=== PATIENT | female | born 1965 | race Caucasian/White ===

== ENCOUNTER 2019-10-06 17:52 | Emergency (ER) | payer SELFPAY ==
[2019-10-06] MEDS ORDERED: DIPHENHYDRAMINE 25 MG TAB/CAP ONE (19:10)
[2019-10-06] MEDS ORDERED: SMZ./TMP. 800/160 MG TABLET ONE (19:11)
[2019-10-06] MEDS ORDERED: predniSONE 20 MG TAB ONE (19:11)
--- NOTE | 2019-10-06 19:17 | ER ---
Nurse's Notes [facility] Name: Evie Nesbitt Age: 54 yrs Sex: Female : 1965 Arrival Date: 10/06/2019 Time: 17:56 Bed 25 Private MD: Diagnosis: Dermatitis, unspecified;Rash and other nonspecific skin eruption;Tobacco abuse counseling;Tobacco use Presentation: 10/06 18:22 Presenting complaint: Patient states: "I have these bumps all over me and I don't know aj what they are" Reports that she has had this rash for the past weeks. States that the rash is over her entire body and it itches. Transition of care: patient was not received from another setting of care. Onset of symptoms was September 2019. Risk Assessment: Do you want to hurt yourself or someone else? Patient reports no desire to harm self or others. Initial Sepsis Screen: Does the patient meet any 2 criteria? No. Patient's initial sepsis screen is negative. Does the patient have a suspected source of infection? No. Patient's initial sepsis screen is negative. Care prior to arrival: None. 18:22 Method Of Arrival: Ambulatory [facility] 18:22 Acuity: LLOYD 5 aj1 Triage Assessment: 18:23 General: Appears in no apparent distress. comfortable, Behavior is calm, cooperative, aj1 appropriate for age. Pain: Denies pain. Neuro: Level of Consciousness is awake, alert, obeys commands. Cardiovascular: Patient's skin is warm and dry. Respiratory: Airway is patent Respiratory effort is even, unlabored, Respiratory pattern is regular, symmetrical. Historical: - Allergies: 18:23 No Known Allergies; aj1 - PMHx: 18:23 None; aj1 - Immunization history:: Flu vaccine is not up to date. - Coronavirus screen:: The patient has NOT traveled to [place] in the past 14 days. - Social history:: Smoking status: Patient reports the use of cigarette tobacco products, smokes one pack cigarettes per day. - Ebola Screening: : Patient denies travel to an Ebola-affected area in the 21 days before illness onset. Screenin:30 Abuse screen: Denies threats or abuse. Denies injuries from another. Nutritional ls4 screening: No deficits noted. Tuberculosis screening: No symptoms or risk factors identified. Fall Risk None identified. Assessment: 18:25 General: Appears in no apparent distress. comfortable. ls4 18:25 Neuro: No deficits noted. Cardiovascular: No deficits noted. Respiratory: No deficits ls4 noted. Derm: Rash noted that is macular, itchy, urticaria, ON TRUNK ARMS BACK AND LEGS. Vital Signs: 18:23 BP 123 / 81; Pulse 94; Resp 18; Temp 97.8; Pulse Ox 100% on R/A; Weight 45.36 kg (R); aj1 Height 5 ft. 6 in. (167.64 cm) (R); Pain 0/10; 19:30 BP 122 / 80; Pulse 88; Resp 14; Temp 98.0(O); Pulse Ox 99% on R/A; Pain 0/10; ls4 18:23 Body Mass Index 16.14 (45.36 kg, 167.64 cm) 1 ED Course: 17:56 Patient arrived in ED. mr 18:23 Triage completed. aj1 18:23 Arm band placed on. 1 18:25 Kt Wolff MD is Attending Physician. [facility] 18:30 Patient has correct armband on for positive identification. Bed in low position. Call ls4 light in reach. Side rails up X 1. Verbal reassurance given. 18:56 Salud Amador, MAREK is Primary Nurse. ls4 19:02 No provider procedures requiring assistance completed. ls4 19:15 Kenyetta Miguel MD is Referral Physician. [facility] 19:38 Patient did not have IV access during this emergency room visit. ls4 Administered Medications: 19:11 Drug: Benadryl 25 mg Route: PO; ls4 19:32 Follow up: Response: No adverse reaction ls4 19:11 Drug: Bactrim (160 mg-800 mg (DS) 1 tablet Route: PO; ls4 19:32 Follow up: Response: No adverse reaction ls4 19:11 Drug: predniSONE 20 mg Route: PO; ls4 19:32 Follow up: Response: No adverse reaction ls4 19:21 Drug: Pepcid 40 mg Route: PO; ls4 19:32 Follow up: Response: No adverse reaction ls4 Outcome: 19:15 Discharge ordered by . sallie 19:38 Condition: good ls4 19:38 Discharged to home ambulatory. ls4 19:38 Discharge instructions given to patient, Instructed on discharge instructions, follow up and referral plans. medication usage, Demonstrated understanding of instructions, follow-up care, medications, Prescriptions given X 4. 19:40 Patient left the ED. ls4 Signatures: Awa Flores RN RN aj1 Kt Wolff MD MD cha Rivera, Mary mr Stewart, Lisa, RN RN ls4
--- NOTE | 2019-10-06 19:18 | EDPHYS ---
Physician Documentation [facility] Name: Evie Nesbitt Age: 54 yrs Sex: Female : 1965 Arrival Date: 10/06/2019 Time: 17:56 Bed 25 Private MD: VERO Physician Kt Wolff HPI: 10/06 19:04 This 54 yrs old Female presents to ER via Ambulatory with complaints of Rash. sallie 19:04 The patient's rash thought to be caused by Dermatitis. The rash is located on the body sallie diffusely. The rash can be described as erythematous, raised. Onset: The symptoms/episode began/occurred 7 day(s) ago. Associated signs and symptoms: Pertinent positives: burning sensation, itching, Pain. Severity of symptoms: At their worst the symptoms were mild in the emergency department the symptoms are unchanged. Treatment given at home: Benadryl. The patient has not experienced similar symptoms in the past. Historical: - Allergies: 18:23 No Known Allergies; aj1 - PMHx: 18:23 None; aj1 - Immunization history:: Flu vaccine is not up to date. - Coronavirus screen:: The patient has NOT traveled to [place] in the past 14 days. - Social history:: Smoking status: Patient reports the use of cigarette tobacco products, smokes one pack cigarettes per day. - Ebola Screening: : Patient denies travel to an Ebola-affected area in the 21 days before illness onset. ROS: 19:07 Constitutional: Negative for fever, chills, and weight loss, Eyes: Negative for injury, sallie pain, redness, and discharge, ENT: Negative for injury, pain, and discharge, Neck: Negative for injury, pain, and swelling, Cardiovascular: Negative for chest pain, palpitations, and edema, Respiratory: Negative for shortness of breath, cough, wheezing, and pleuritic chest pain, Abdomen/GI: Negative for abdominal pain, nausea, vomiting, diarrhea, and constipation, Back: Negative for injury and pain, : Negative for injury, bleeding, discharge, and swelling, MS/Extremity: Negative for injury and deformity, Neuro: Negative for headache, weakness, numbness, tingling, and seizure, Psych: Negative for depression, anxiety, suicide ideation, homicidal ideation, and hallucinations, Allergy/Immunology: Negative for hives, rash, and allergies, Endocrine: Negative for neck swelling, polydipsia, polyuria, polyphagia, and marked weight changes, Hematologic/Lymphatic: Negative for swollen nodes, abnormal bleeding, and unusual bruising. 19:07 Skin: Positive for rash. Exam: 19:07 Constitutional: This is a well developed, well nourished patient who is awake, alert, sallie and in no acute distress. Head/Face: Normocephalic, atraumatic. Eyes: Pupils equal round and reactive to light, extra-ocular motions intact. Lids and lashes normal. Conjunctiva and sclera are non-icteric and not injected. Cornea within normal limits. Periorbital areas with no swelling, redness, or edema. ENT: Nares patent. No nasal discharge, no septal abnormalities noted. Tympanic membranes are normal and external auditory canals are clear. Oropharynx with no redness, swelling, or masses, exudates, or evidence of obstruction, uvula midline. Mucous membranes moist. Neck: Trachea midline, no thyromegaly or masses palpated, and no cervical lymphadenopathy. Supple, full range of motion without nuchal rigidity, or vertebral point tenderness. No Meningismus. Chest/axilla: Normal chest wall appearance and motion. Nontender with no deformity. No lesions are appreciated. Cardiovascular: Regular rate and rhythm with a normal S1 and S2. No gallops, murmurs, or rubs. Normal PMI, no JVD. No pulse deficits. Respiratory: Lungs have equal breath sounds bilaterally, clear to auscultation and percussion. No rales, rhonchi or wheezes noted. No increased work of breathing, no retractions or nasal flaring. Abdomen/GI: Soft, non-tender, with normal bowel sounds. No distension or tympany. No guarding or rebound. No evidence of tenderness throughout. Back: No spinal tenderness. No costovertebral tenderness. Full range of motion. MS/ Extremity: Pulses equal, no cyanosis. Neurovascular intact. Full, normal range of motion. Neuro: Awake and alert, GCS 15, oriented to person, place, time, and situation. Cranial nerves II-XII grossly intact. Motor strength 5/5 in all extremities. Sensory grossly intact. Cerebellar exam normal. Normal gait. Psych: Awake, alert, with orientation to person, place and time. Behavior, mood, and affect are within normal limits. 19:07 Skin: Appearance: Color: normal in color, Temperature: normal temperature, Moisture: normal moisture, dry, petechiae, not noted, ecchymosis, not noted, diaphoresis is not appreciated. Vital Signs: 18:23 BP 123 / 81; Pulse 94; Resp 18; Temp 97.8; Pulse Ox 100% on R/A; Weight 45.36 kg (R); aj1 Height 5 ft. 6 in. (167.64 cm) (R); Pain 0/10; 19:30 BP 122 / 80; Pulse 88; Resp 14; Temp 98.0(O); Pulse Ox 99% on R/A; Pain 0/10; ls4 18:23 Body Mass Index 16.14 (45.36 kg, 167.64 cm) aj1 MDM: 18:25 Patient medically screened. [facility] 19:14 Data reviewed: vital signs, nurses notes. sallie Administered Medications: 19:11 Drug: Benadryl 25 mg Route: PO; ls4 19:32 Follow up: Response: No adverse reaction ls4 19:11 Drug: Bactrim (160 mg-800 mg (DS) 1 tablet Route: PO; ls4 19:32 Follow up: Response: No adverse reaction ls4 19:11 Drug: predniSONE 20 mg Route: PO; ls4 19:32 Follow up: Response: No adverse reaction ls4 19:21 Drug: Pepcid 40 mg Route: PO; ls4 19:32 Follow up: Response: No adverse reaction ls4 Disposition: 10/06/19 19:15 Discharged to Home. Impression: Dermatitis, unspecified, Rash and other nonspecific skin eruption, Tobacco abuse counseling, Tobacco use. - Condition is Stable. - Discharge Instructions: Contact Dermatitis, Rash, Steps to Quit Smoking, Smoking Hazards, Rash, Ozsr-mo-Rkiv, Steps to Quit Smoking, Oxne-is-Cade, Contact Dermatitis, Pbem-cw-Wqge. - Prescriptions for Benadryl 25 mg Oral Capsule - take 1 capsule by ORAL route every 6 hours As needed; 30 tablet. Medrol (Alvarado) 4 mg Oral Tablets, Dose Pack - take 1 tablet by ORAL route as directed - follow package instructions; 1 packet. Bactrim DS 800- 160 mg Oral Tablet - take 1 tablet by ORAL route every 12 hours for 7 days; 14 tablet. Pepcid 20 mg Oral Tablet - take 1 tablet by ORAL route every 12 hours for 10 days; 20 tablet. - Medication Reconciliation Form, Thank You Letter, Antibiotic Education, Prescription Opioid Use form. - Follow up: Private Physician; When: 2 - 3 days; Reason: Recheck today's complaints, Continuance of care, Re-evaluation by your physician. Follow up: Kenyetta Miguel MD; When: 2 - 3 days; Reason: Recheck today's complaints, Continuance of care, Re-evaluation by your physician. - Problem is new. - Symptoms have improved. Signatures: Awa Flores RN RN aj1 Kt Wolff MD MD cha Stewart, Lisa RN RN ls4 Corrections: (The following items were deleted from the chart) 19:40 19:15 10/06/2019 19:15 Discharged to Home. Impression: Dermatitis, unspecified; Rash ls4 and other nonspecific skin eruption; Tobacco abuse counseling; Tobacco use. Condition is Stable. Forms are Medication Reconciliation Form, Thank You Letter, Antibiotic Education, Prescription Opioid Use. Follow up: Private Physician; When: 2 - 3 days; Reason: Recheck today's complaints, Continuance of care, Re-evaluation by your physician. Follow up: Kenyetta Miguel; When: 2 - 3 days; Reason: Recheck today's complaints, Continuance of care, Re-evaluation by your physician. Problem is new. Symptoms have improved. sallie
[2019-10-06] MEDS ORDERED: FAMOTIDINE 20 MG TAB ONE (19:29)
[2019-10-06 20:25] VITALS: BP 123/81; TEMP 97.8; O2SAT 100
== END 2019-10-06 19:40 | disposition home or self-care (01) ==
LOC: ER 17:52
DX: L30.9 Dermatitis, unspecified (principal); Z72.0 Tobacco use; Z71.6 Tobacco abuse counseling
CPT/HCPCS: 99283; J7512

== ENCOUNTER 2020-01-05 17:00 | Emergency (ER) | payer SELFPAY ==
--- OUTSIDE RECORDS SUMMARY | 2020-01-05 17:04 | XMS REPORT ---
:1965 Author Organization [facility] t Address [address] [place] [address] Care Team Providers Name Role Phone Unavailable Unavailable Unavailable Problems This patient has no known problems. Allergies, Adverse Reactions, Alerts This patient has no known allergies or adverse reactions. Medications This patient has no known medications. Procedures This patient has no known procedures. Results This patient has no known results.
--- NOTE | 2020-01-05 17:29 | ER ---
Nurse's Notes [facility] Name: Evie Nesbitt Age: 54 yrs Sex: Female : 1965 Arrival Date: 01/05/2020 Time: 17:01 Bed 18 Private MD: Diagnosis: Rash and other nonspecific skin eruption Presentation: 01/04 17:08 Chief complaint: Patient states: Rashes all over body started 3 months ago. Took abx ca1 and steroids prescribed by PCP. Rashes on body was gone but started on face about 1-1.5 months ago. Reports itching on face. Coronavirus screen: Patient denies a cough. Patient denies shortness of breath or difficulty breathing. Patient denies measured and/or subjective temperature greater than 100.4F prior to today's visit. Patient denies travel on a cruise ship or to a country the [facility] currently lists as an affected area. Patient denies contact with known and/or suspected case of COVID-19. Ebola Screen: Patient negative for fever greater than or equal to 101.5 degrees Fahrenheit, and additional compatible Ebola Virus Disease symptoms Patient denies exposure to infectious person. Patient denies travel to an Ebola-affected area in the 21 days before illness onset. No symptoms or risks identified at this time. Initial Sepsis Screen: Does the patient meet any 2 criteria? No. Patient's initial sepsis screen is negative. Does the patient have a suspected source of infection? No. Patient's initial sepsis screen is negative. Risk Assessment: Do you want to hurt yourself or someone else? Patient reports no desire to harm self or others. Onset of symptoms was January 05, 2020. 17:08 Method Of Arrival: Ambulatory ca1 17:08 Acuity: LLOYD 4 ca1 Historical: - Allergies: 17:11 No Known Allergies; ca1 - Home Meds: 17:11 None [Active]; ca1 - PMHx: 17:11 None; ca1 - PSHx: 17:11 None; ca1 - Immunization history:: Adult Immunizations up to date. - Social history:: Smoking status: Patient reports the use of cigarette tobacco products, smokes one pack cigarettes per day. Screenin:15 Abuse screen: Denies threats or abuse. Nutritional screening: No deficits noted. aa5 Tuberculosis screening: No symptoms or risk factors identified. Fall Risk None identified. Assessment: 17:15 General: Appears comfortable, Behavior is calm, cooperative. Pain: Denies pain. Neuro: aa5 Level of Consciousness is awake, alert, obeys commands, Oriented to person, place, time, situation. Cardiovascular: Patient's skin is warm and dry. Respiratory: Airway is patent Respiratory effort is even, unlabored, Respiratory pattern is regular, symmetrical. GI: No signs and/or symptoms were reported involving the gastrointestinal system. : No signs and/or symptoms were reported regarding the genitourinary system. EENT: No signs and/or symptoms were reported regarding the EENT system. Derm: Skin is pink, warm \T\ dry. Rash noted that is red, raised, on face. Musculoskeletal: Range of motion: intact in all extremities. 17:35 Reassessment: Patient is alert, oriented x 3, equal unlabored respirations, skin aa5 warm/dry/pink. Vital Signs: 17:08 BP 107 / 80; Pulse 92; Resp 16 S; Temp 97.4(TE); Pulse Ox 100% on R/A; Weight 45.36 kg ca1 (R); Height 5 ft. 6 in. (167.64 cm) (R); 17:08 Body Mass Index 16.14 (45.36 kg, 167.64 cm) ca1 ED Course: 17:01 Patient arrived in ED. am2 17:11 Triage completed. ca1 17:11 Malgorz[facility] Due[facility]as [facility] kb 17:11 Boris Mehta MD is Attending Physician. kb 17:11 Arm band placed on right wrist. ca1 17:13 Herminia Cary, MAREK is Primary Nurse. aa5 17:15 Patient has correct armband on for positive identification. aa5 17:15 No provider procedures requiring assistance completed. Patient did not have IV access aa5 during this emergency room visit. Administered Medications: No medications were administered Outcome: 17:27 Discharge ordered by . kb 17:35 Discharged to home ambulatory. aa5 17:35 Condition: stable 17:35 Discharge instructions given to patient, Instructed on discharge instructions, follow up and referral plans. medication usage, Demonstrated understanding of instructions, follow-up care, medications, Prescriptions given X 1. 17:40 Patient left the ED. aa5 Signatures: Malgorzata Dueñas FNP-C FNP-Herminia Holguin, RN RN aa5 Robyn Painter am2 Natalia Flores, RN RN ca1
--- NOTE | 2020-01-05 17:29 | EDPHYS ---
Physician Documentation [facility] Name: Evie Nesbitt Age: 54 yrs Sex: Female : 1965 Arrival Date: 01/05/2020 Time: 17:01 Bed 18 Private MD: ED Physician Boris Mehta HPI: 01/04 17:24 This 54 yrs old Female presents to ER via Ambulatory with complaints of kb hearing problem, Rash - on face. 17:24 The patient's rash thought to be caused by Dermatitis. The rash is located on the face. kb The rash can be described as erythematous. Onset: The symptoms/episode began/occurred 3 month(s) ago. Associated signs and symptoms: Pertinent positives: burning sensation, itching, Pertinent negatives: difficulty breathing, fever, nausea, Pain swelling of lips, swelling of throat, swelling of tongue, vomiting, wheezing. Severity of symptoms: At their worst the symptoms were moderate in the emergency department the symptoms are unchanged. Treatment given at home: Benadryl. The patient has not experienced similar symptoms in the past. The patient has not recently seen a physician. 17:25 Pt reports she developed a rash to entire body 3 months ago, came here and was given kb steroids, pepcid, and bactrim. States the rash went away from her body, but still on her face. Historical: - Allergies: 17:11 No Known Allergies; ca1 - Home Meds: 17:11 None [Active]; ca1 - PMHx: 17:11 None; ca1 - PSHx: 17:11 None; ca1 - Immunization history:: Adult Immunizations up to date. - Social history:: Smoking status: Patient reports the use of cigarette tobacco products, smokes one pack cigarettes per day. ROS: 17:23 Constitutional: Negative for fever, chills, and weight loss, Cardiovascular: Negative kb for chest pain, palpitations, and edema, Respiratory: Negative for shortness of breath, cough, wheezing, and pleuritic chest pain, Abdomen/GI: Negative for abdominal pain, nausea, vomiting, diarrhea, and constipation, Back: Negative for injury and pain, MS/Extremity: Negative for injury and deformity, Neuro: Negative for headache, weakness, numbness, tingling, and seizure. 17:23 Skin: Positive for rash, of the face. Exam: 17:23 Constitutional: This is a well developed, well nourished patient who is awake, alert, kb and in no acute distress. Head/Face: Normocephalic, atraumatic. Chest/axilla: Normal chest wall appearance and motion. Nontender with no deformity. No lesions are appreciated. Cardiovascular: Regular rate and rhythm with a normal S1 and S2. No gallops, murmurs, or rubs. Normal PMI, no JVD. No pulse deficits. Respiratory: Lungs have equal breath sounds bilaterally, clear to auscultation and percussion. No rales, rhonchi or wheezes noted. No increased work of breathing, no retractions or nasal flaring. Abdomen/GI: Soft, non-tender, with normal bowel sounds. No distension or tympany. No guarding or rebound. No evidence of tenderness throughout. Back: No spinal tenderness. No costovertebral tenderness. Full range of motion. MS/ Extremity: Pulses equal, no cyanosis. Neurovascular intact. Full, normal range of motion. Neuro: Awake and alert, GCS 15, oriented to person, place, time, and situation. Cranial nerves II-XII grossly intact. Motor strength 5/5 in all extremities. Sensory grossly intact. Cerebellar exam normal. Normal gait. 17:23 Skin: rash a moderate rash is noted, rash can be described as erythematous, nonspecific, on the face. Vital Signs: 17:08 BP 107 / 80; Pulse 92; Resp 16 S; Temp 97.4(TE); Pulse Ox 100% on R/A; Weight 45.36 kg ca1 (R); Height 5 ft. 6 in. (167.64 cm) (R); 17:08 Body Mass Index 16.14 (45.36 kg, 167.64 cm) ca1 MDM: 17:12 Patient medically screened. kb 17:24 Data reviewed: vital signs, nurses notes. Data interpreted: Pulse oximetry: on room air kb is 100 %. Interpretation: normal. Counseling: I had a detailed discussion with the patient and/or guardian regarding: the historical points, exam findings, and any diagnostic results supporting the discharge/admit diagnosis, the need for outpatient follow up, a manager mechanical, to return to the emergency department if symptoms worsen or persist or if there are any questions or concerns that arise at home. Administered Medications: No medications were administered Disposition: 01/05 07:10 Co-signature as Attending Physician, Boris Mehta MD. rn Disposition: 01/05/20 17:27 Discharged to Home. Impression: Rash and other nonspecific skin eruption. - Condition is Stable. - Discharge Instructions: Rash, [id number]. - Prescriptions for Prednisone 20 mg Oral Tablet - take 1 tablet by ORAL route once daily for 5 days; 5 tablet. - Medication Reconciliation Form, Thank You Letter, Antibiotic Education, Prescription Opioid Use form. - Follow up: Emergency Department; When: As needed; Reason: Worsening of condition. Follow up: Private Physician; When: 2 - 3 days; Reason: Recheck today's complaints, Continuance of care, Re-evaluation by your physician. Signatures: Malgorzata Dueñas, CARBURETOR REPAIRER-C CARBURETOR REPAIRER-Boris Jansen MD MD rn Calderon, Audri RN RN aa5 Natalia Flores RN RN ca1 Corrections: (The following items were deleted from the chart) 01/04 17:40 17:27 01/05/2020 17:27 Discharged to Home. Impression: Rash and other nonspecific skin aa5 eruption. Condition is Stable. Forms are Medication Reconciliation Form, Thank You Letter, Antibiotic Education, Prescription Opioid Use. Follow up: Emergency Department; When: As needed; Reason: Worsening of condition. Follow up: Private Physician; When: 2 - 3 days; Reason: Recheck today's complaints, Continuance of care, Re-evaluation by your physician. kb
[2020-01-05 17:45] VITALS: BP 107/80; TEMP 97.4; O2SAT 100
== END 2020-01-05 17:40 | disposition home or self-care (01) ==
LOC: ER 17:00
DX: R21 Rash and other nonspecific skin eruption (principal); F17.210 Nicotine dependence, cigarettes, uncomplicated
CPT/HCPCS: 99282

== ENCOUNTER 2024-10-31 18:41 | Emergency (ER) | payer OTHER ==
--- OUTSIDE RECORDS SUMMARY | 2024-10-31 18:44 | XMS REPORT | Continuity of Care Document ---
Author Name Unknown Address [address] [address] [place] [address] Organization [facility] [place] Address [address] [facility] [address] [place] [address] Care Team Providers Care Ui Ux Engineer Name Role Phone Tejal Feldman Attending Clinician Unavailable Payers Payer Name Policy Type Policy Number Effective Date Expirati on Date Source [facility] AARP MCR Advantage (HMO-POS) 511 [id number] 2023 00:00:00 [facility] Problems Condition Name Condition Details Condition Category Status Onset Date Resolution Date Last Treatment Date Treating Clinician Comments Source [id number] Weight gain advised Problem [facility] [id number] BMI less than 19,adult Problem [facility] [id number] Patient underweigh t Problem [facility] [id number] Elevated BP without diagnosis of hypertensi on Problem [facility] [id number] 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 Problem [facility] [id number] Smoker unmotivate d to quit Problem [facility] [id number] White coat syndrome without diagnosis of hypertensi on Problem [facility] Social History Social Habit Start Date Stop Date Quantity Comments Source History of Tobacco Use Current Smoker [facility] Sex Assigned At [facility] Smoking Status Start Date Stop Date Source Current Smoker 2024-07-30 00:00:00 [facility] Medications Ordered Medication Name Filled Medication Name Start Date Stop Date Current Medication? Ordering Clinician Indication Dosage Frequency Signature (SIG) Comments Components Source Nystatin-Tr iamcinolone 413908-5.1 UNIT/GM Nystatin-Tr iamcinolone 200729-6.1 UNIT/GM 2023-08 00:00: 00 No 1{appli cation} BID Nystatin-T riamcinolo ne 703934-9.1 UNIT/GM Mirtazapine 45 MG Mirtazapine 45 MG No 1{table t_at_be dtime} QD Mirtazapin e 45 MG Vitamin B12 Vitamin B12 No Vi tamin B12 Vital Signs Vital Name Observation Time Observation Value Comments S reece height 2024-07-30 13:00:00 67.00 [in_i] Com [facility] weight 2024-07-30 13:00:00 123.6 [lb_av] Co [facility] temperature 2024-07-30 13:00:00 97.9 [degF] Com [facility] bmi 2024-07-30 13:00:00 19.36 kg/m2 Comm on [facility] oximetry 2024-07-30 13:00:00 95 % Commo n [facility] respiratory rate 2024-07-30 13:00:00 16 /min [facility] blood pressure systolic 2024-07-30 13:00:00 136 mm[Hg] [facility] blood pressure diastolic 2024-07-30 13:00:00 86 mm[Hg] [facility] height 2024-07-06 10:20:00 67.00 [in_i] Com [facility] weight 2024-07-06 10:20:00 125.4 [lb_av] Co [facility] temperature 2024-07-06 10:20:00 98.1 [degF] Com mon [facility] bmi 2024-07-06 10:20:00 19.64 kg/m2 Comm on [facility] oximetry 2024-07-06 10:20:00 96 % Commo n [facility] respiratory rate 2024-07-06 10:20:00 16 /min Common [facility] blood pressure systolic 2024-07-06 10:20:00 132 mm[Hg] Common [facility] blood pressure diastolic 2024-07-06 10:20:00 86 mm[Hg] [facility] height 2024-03-30 11:20:00 67.00 [in_i] Com [facility] weight 2024-03-30 11:20:00 124 [lb_av] Comm on [facility] bmi 2024-03-30 11:20:00 19.42 kg/m2 Comm on [facility] height 2023 14:00:00 67.00 [in_i] Com [facility] weight 2023 14:00:00 115 [lb_av] Comm on [facility] bmi 2023 14:00:00 18.01 kg/m2 Comm on [facility] height 2023-05-17 09:00:00 67.00 [in_i] Com [facility] weight 2023-05-17 09:00:00 118.4 [lb_av] Co mmon [facility] temperature 2023-05-17 09:00:00 97.9 [degF] Com [facility] bmi 2023-05-17 09:00:00 18.54 kg/m2 Comm on [facility] oximetry 2023-05-17 09:00:00 95 % Commo n [facility] respiratory rate 2023-05-17 09:00:00 16 /min Common [facility] blood pressure systolic 2023-05-17 09:00:00 140 mm[Hg] [facility] blood pressure diastolic 2023-05-17 09:00:00 90 mm[Hg] [facility] Encounters Start Date/Time End Date/Time Encounter Type Admission Type Attending [facility] Care Department Encounter ID Source 2024-07-02 08:24:00 Outpatient Tejal Feldman [facility] ST[facility] [id number] [facility] 2024-06-13 09:08:00 Outpatient Tejal Feldman [facility] ST[facility] [id number] [facility] 2023-09-07 15:33:01 Outpatient Tejal Feldman [facility] ST[facility] [id number] [facility] 2023 16:30:00 Outpatient Tejal Feldman [facility] ST[facility] [id number] [facility] 2023-09-05 09:17:00 Outpatient Tejal Feldman [facility] ST[facility] [id number] [facility] 2023-09-01 08:47:01 Outpatient Tejal Feldman [facility] ST[facility] [id number] [facility] 2023-05-26 09:59:00 Outpatient Tejal Feldman [facility] ST[facility] [id number] [facility] 2023-05-17 08:12:00 Outpatient Tejal Feldman [facility] ST[facility] [id number] [facility] 2024-09-19 00:00:00 2024-09-19 00:00:00 (TEL) [facility]C ST[facility] [id number] [facility] 2024-07-30 00:00:00 2024-07-30 00:00:00 OFFICE VISIT ESTAB PT LEVEL 3 [facility] STL[facility]C [id number] [facility] 2024-07-06 00:00:00 2024-07-06 00:00:00 OFFICE VISIT ESTAB PT LEVEL 4 [facility] ST[facility]C [id number] [facility] 2024-04-24 00:00:00 2024-04-24 00:00:00 (TEL) [facility]LMLC ST[facility]C [id number] [facility] 2024-04-13 00:00:00 2024-04-13 00:00:00 (TEL) [facility]LMLC STL[facility]C [id number] [facility] 2024-04-09 00:00:00 2024-04-09 00:00:00 (TEL) [facility]C STL[facility]C [id number] [facility] 2024-03-30 00:00:00 2024-03-30 00:00:00 OFFICE VISIT ESTAB PT LEVEL 3 [facility] ST[facility]C [id number] [facility] 2024-03-28 00:00:00 2024-03-28 00:00:00 (TEL) [facility]C STL[facility]C [id number] [facility] 2023 00:00:00 2023 00:00:00 OFFICE VISIT ESTAB PT LEVEL 4 [facility] ST[facility]C [id number] [facility] 2023-07-06 00:00:00 2023-07-06 00:00:00 (TEL) [facility]C STL[facility]C [id number] [facility] 2023-05-17 00:00:00 2023-05-17 00:00:00 OFFICE VISIT NEW PT LEVEL 4 [facility] ST[facility]C [id number] [facility]
[2024-10-31] MEDS ORDERED: LIDOCAINE 1% MPF 5 ML VIAL ONE (19:31)
[2024-10-31] MEDS ORDERED: TDAP (DIPHTH,PERTUSS(ACELL),TET VAC) 0.5 ML VIAL IMVAC ONE (19:31)
[2024-10-31] MEDS ORDERED: HYDROCODONE/APAP 5/325 MG TAB ONE (21:15)
--- NOTE | 2024-10-31 21:15 | RAD REPORT ---
EXAMINATION: XR Foot Right 3 View CLINICAL INDICATION: Female, 59 years old. [facility] MAIN PAIN Bed Name: 4 TECHNIQUE: 3 view radiographs of the right foot were obtained. COMPARISON: No prior exam. FINDINGS: Mildly comminuted and displaced fractures at the neck and proximal shaft of the fifth metat arsal. Lateral foot soft tissue swelling. Normal alignment. No evidence of arthropathy or other focal bone lesion. IMPRESSION: Mildly comminuted and displaced fracture of the neck and proximal shaft of the fifth metatarsal.
--- NOTE | 2024-10-31 22:02 | RAD REPORT ---
EXAM: CT brain without contrast HISTORY: TRAUMA COMPARISON: None available TECHNIQUE: Multiple contiguous axial images were obtained and a CT of the brain without contrast. Sag ittal and coronal reformats were performed. FINDINGS: No evidence of hydrocephalus, intracranial hemorrhage, or extra-axial fluid collection. Right inferior cerebellar juxtacortical 1 cm focus of calcification, without adjacent signal abnormal ity or mass effect The brain is otherwise normal in morphology. The calvarium is intact. The visualized paranasal sinuses are well-aerated. Patchy opacification of t he left mastoid air cells. IMPRESSION: No evidence of acute intracranial abnormality. 1 cm right inferior cerebellar juxtacortical focus of calcification, nonspecific, could represent seq uelae of prior hemorrhage or infection. EXAM: CT of the cervical spine without contrast HISTORY: TRAUMA COMPARISON: None TECHNIQUE: Multiple contiguous axial images were obtained in a CT of the cervical spine without contr ast. Sagittal and coronal reformats were performed. FINDINGS: The vertebral bodies demonstrate normal height and alignment. No evidence of acute fracture or subluxation.. No degenerative changes are present. No prevertebral soft tissue swelling is seen. The posterior facets are well aligned. Normal alignment of the skull base with the cervical spine is seen. The lung apices are unremarkable. IMPRESSION: No evidence of acute osseous abnormality of the cervical spine.
--- NOTE | 2024-10-31 22:32 | EDPHYS ---
Physician Documentation [facility] Name: Evie Nesbitt Age: 59 yrs Sex: Female : 1965 Arrival Date: 10/31/2024 Time: 18:41 Bed 4 Private MD: ED Physician Jose Ordoñez HPI: 10/31 23:03 This 59 yrs old Female presents to ER via EMS with complaints of Fall Injury. kb 23:03 Pt is a 59 year old female who presents for stumble and fall that occurred earlier kb today. Pt hit right side of head when she fell, obtained several abrasions to extremities, laceration to left hand and has pain to right foot. Denies loc. . Historical: - Allergies: 18:50 No Known Allergies; cm10 - Home Meds: 18:50 None [Active]; cm10 - PMHx: 18:50 None; cm10 - PSHx: 18:50 None; cm10 - Immunization history:: Adult Immunizations not up to date. - Infectious Disease History:: Denies. - Social history:: Smoking status: Patient reports the use of cigarette tobacco products, smokes one pack cigarettes per day. ROS: 23:05 Constitutional: As per HPI kb Exam: 19:20 Constitutional: This is a well developed, well nourished patient who is awake, alert, kb and in no acute distress. ENT: Moist Mucous membranes Cardiovascular: Regular rate Respiratory: Respirations even and unlabored. No increased work of breathing. Talking in full sentences Back: No spinal tenderness. No costovertebral tenderness. Full range of motion. Neuro: Awake and alert, GCS 15, oriented to person, place, time, and situation. 19:20 Musculoskeletal/extremity: Extremities: grossly normal except: noted in the right foot: ecchymosis, pain, ROM: intact in all extremities, Circulation is intact in all extremities. Sensation intact. 19:20 Skin: injury, abrasion(s), right elbow, right knee, left hand, laceration(s), the wound is approximately 2 cm(s), of the palm of left hand, that can be described as clean, no foreign body, irregular, without bleeding, 19:22 Head/face: Noted is no obvious of injury or deformity except ecchymosis, that is kb moderate, of the right temporal area, hematoma, that is mild, of the right temporal area, Vital Signs: 18:51 BP 141 / 89; Pulse 110; Resp 15; Temp 98.2(O); Pulse Ox 100% on R/A; Weight 62.6 kg cm10 (M); Pain 6/10; 20:33 BP 138 / 75; Pulse 84; Resp 17; Temp 98.2; Pulse Ox 100% ; Pain 5/10; bm8 22:56 BP 143 / 98; Pulse 80; Resp 17; Temp 98.2; Pulse Ox 100% ; Pain 2/10; bm8 18:51 Pain Scale: Adult cm10 20:33 Pain Scale: Adult bm8 22:56 Pain Scale: Adult bm8 Taniya Coma Score: 19:14 Eye Response: spontaneous(4). Motor Response: obeys commands(6). Verbal Response: bm8 oriented(5). Total: 15. 20:33 Eye Response: spontaneous(4). Motor Response: obeys commands(6). Verbal Response: bm8 oriented(5). Total: 15. 22:56 Eye Response: spontaneous(4). Motor Response: obeys commands(6). Verbal Response: bm8 oriented(5). Total: 15. Laceration: 22:30 Wound Repair of 2.5cm ( 1.0in ) subcutaneous laceration to palm of left hand. kb Irregularly shaped.. Distal neuro/vascular/tendon intact. Anesthesia: Wound infiltrated with 2 mls of 1% lidocaine. Wound prep: Extensive cleansing with hibiclenz by me, Wound irrigation with saline by me. Skin closed with 5 5-0 Prolene using simple sutures and sterile technique. Patient tolerated well. MDM: 18:54 Medical Screening Exam initiated kb 23:03 Differential diagnosis: abrasion, closed head injury, contusion, fracture, laceration. kb Data reviewed: vital signs, nurses notes. Historians other than the Patient: Daughter/Son: daughter. Counseling: I had a detailed discussion with the patient and/or guardian regarding the historical points, exam findings, and any diagnostic results supporting the discharge/admit diagnosis, radiology results, the need for outpatient follow up, a family practitioner, a orthopedic surgeon, to return to the emergency department if symptoms worsen or persist or if there are any questions or concerns that arise at home. 10/31 19:20 Order name: CT Head C Spine; Complete Time: 22:06 kb 10/31 19:20 Order name: Foot Right 3 View XRAY; Complete Time: 21:16 kb 10/31 19:20 Order name: Dressing - Wound; Complete Time: 19:34 kb 10/31 19:20 Order name: Gloves, Sterile; Complete Time: 19:34 kb 10/31 19:20 Order name: Prolene, Sutures; Complete Time: 19:34 kb 10/31 19:20 Order name: Setup Suture Tray; Complete Time: :34 kb 10/31 22:00 Order name: Post-op shoe kb Administered Medications: 19:34 Drug: Boostrix Tdap IM 0.5 ml IM once; as a single dose Route: IM; Site: left deltoid; bm8 21:21 Follow up: Response: No adverse reaction bm8 21:16 Drug: HYDROcodone-acetaminophen PO 5 mg-325 mg 1 tabs PO once Route: PO; bm8 21:21 Follow up: Response: No adverse reaction bm8 21:21 Not Given (Physician Discretion): lidocaine(1 %) 1 vials 5 ml Infiltration once; to bm8 bedside Disposition: 20:58 Co-signature as Attending Physician, Jose Ordoñez MD I reviewed the patient's care rt provided by the Advanced Practice Provider and agree with the diagnosis and treatment plan. Disposition Summary: 10/31/24 22:31 Discharge Ordered Notes: Location: Home kb Condition: Stable kb Diagnosis - Unspecified injury of head, initial encounter kb - Fall on same level, unspecified kb - Displaced fracture of fifth metatarsal bone, right foot kb - Laceration without foreign body of left hand kb Followup: kb - With: Emergency Department - When: As needed - Reason: Worsening of condition Followup: kb - With: Private Physician - When: 2 - 3 days - Reason: Recheck today's complaints, Continuance of care, Re-evaluation by your physician Discharge Instructions: - Discharge Summary Sheet kb - Laceration Care, Adult, [id number] kb - Abrasion, [id number] kb - Head Injury, Adult, [id number] kb Forms: - Medication Reconciliation Form kb - Antibiotic Education kb - Prescription Opioid Use kb - Patient Portal Instructions kb - Leadership Thank You Letter kb Prescriptions: - Diclofenac Sodium 75 mg Oral tablet, delayed release (enteric coated) - take 1 tablet ORAL route 2 times per day As needed; 30 tablet; Refills: 0, kb Product Selection Permitted - orphenadrine citrate 100 mg Oral Tablet Sustained Release - take 1 tablet ORAL route 2 times per day As needed; 20 tablet; Refills: 0, kb Product Selection Permitted Signatures: Dispatcher [employer] Malgorzata José, HELENEC W[employer] DYEING TENDER-Jose Phelps MD MD rt Susan Watson RN RN cm10 Joey Wesley RN RN bm8
--- NOTE | 2024-10-31 22:32 | ER ---
Nurse's Notes [facility] Name: Evie Nesbitt Age: 59 yrs Sex: Female : 1965 Arrival Date: 10/31/2024 Time: 18:41 Bed 4 Private MD: Diagnosis: Unspecified injury of head, initial encounter;Fall on same level, unspecified;Displaced fracture of fifth metatarsal bone, right foot;Laceration without foreign body of left hand Presentation: 10/31 18:51 Chief complaint: EMS states: Pt had a stumble and fall. Pt has abrasion to left hand cm10 and to right foot. Pt also has redness to right shinto. Coronavirus screen: Client denies travel out of the [place] in the last 14 days. Ebola Screen: Patient denies travel to an Ebola-affected area in the 21 days before illness onset. Initial Sepsis Screen: Does the patient meet any 2 criteria? HR > 90 bpm. Does the patient have a suspected source of infection? No. Patient's initial sepsis screen is negative. Risk Assessment: Do you want to hurt yourself or someone else? Patient reports no desire to harm self or others. Onset of symptoms was October 31, 2024. 18:51 Method Of Arrival: EMS: [facility] 18:51 Acuity: LLOYD 3 10 18:53 Care prior to arrival: IV initiated. 20 GA, in the left forearm, Glucose check: 108. cm10 Triage Assessment: 18:50 General: Appears in no apparent distress. comfortable, Behavior is calm, cooperative. cm10 Neuro: No deficits noted. Level of Consciousness is awake, alert, obeys commands, Oriented to person, place, time, situation, Appropriate for age. Respiratory: No deficits noted. Airway is patent Respiratory effort is even, unlabored, Respiratory pattern is regular, symmetrical. Historical: - Allergies: 18:50 No Known Allergies; cm10 - Home Meds: 18:50 None [Active]; cm10 - PMHx: 18:50 None; cm10 - PSHx: 18:50 None; cm10 - Immunization history:: Adult Immunizations not up to date. - Infectious Disease History:: Denies. - Social history:: Smoking status: Patient reports the use of cigarette tobacco products, smokes one pack cigarettes per day. Screenin:53 [facility] ED Fall Risk Assessment (Adult) History of falling in the last 3 months, cm10 including since admission Yes- single mechanical fall (1 pt) Confusion or Disorientation No (0 pts) Intoxicated or Sedated No (0 pts) Impaired Gait No (0 pts) Mobility Assist Device Used Altered Elimination No (0 pt) Score/Fall Risk Level 0 - 2 = Low Risk Oriented to surroundings, Maintained a safe environment, Hourly rounding (assess needs \T\ fall precautionary measures) done. Abuse screen: Denies threats or abuse. Denies injuries from another. Nutritional screening: No deficits noted. Tuberculosis screening: No symptoms or risk factors identified. Assessment: 19:14 General: Appears in no apparent distress. comfortable, Behavior is calm, cooperative, bm8 appropriate for age. Pain: Pain currently is 5 out of 10 on a pain scale. Quality of pain is described as aching, crampy. Neuro: No deficits noted. Level of Consciousness is awake, alert, obeys commands, Oriented to person, place, time, situation, Appropriate for age. Cardiovascular: No deficits noted. Denies chest pain, Capillary refill < 3 seconds in bilateral fingers Patient's skin is warm and dry. Respiratory: Airway is patent Respiratory effort is even, unlabored, Respiratory pattern is regular, symmetrical. GI: No signs and/or symptoms were reported involving the gastrointestinal system. : No signs and/or symptoms were reported regarding the genitourinary system. EENT: No signs and/or symptoms were reported regarding the EENT system. Derm: Wound noted inner aspect of left palm Wound is lateral lac across left palm near david digit approx. 1.25 inches. Musculoskeletal: Circulation, motion, and sensation intact. Capillary refill < 3 seconds, in bilateral fingers. Range of motion: intact in all extremities, Reports pain in right temporal area, left hand, dorsum of right foot and anterior aspect of right ankle. 20:33 Reassessment: Patient appears in no apparent distress at this time. Patient and/or bm8 family updated on plan of care and expected duration. Pain level reassessed. Patient is alert, oriented x 3, equal unlabored respirations, skin warm/dry/pink. Patient states feeling better. Patient states symptoms have improved. 21:20 Reassessment: Patient appears in no apparent distress at this time. Patient and/or bm8 family updated on plan of care and expected duration. Pain level reassessed. Patient is alert, oriented x 3, equal unlabored respirations, skin warm/dry/pink. Patient states feeling better. Patient states symptoms have improved. 22:56 Reassessment: Patient appears in no apparent distress at this time. Patient and/or bm8 family updated on plan of care and expected duration. Pain level reassessed. Patient is alert, oriented x 3, equal unlabored respirations, skin warm/dry/pink. Patient states feeling better. Patient states symptoms have improved. Pain: Denies pain. Vital Signs: 18:51 BP 141 / 89; Pulse 110; Resp 15; Temp 98.2(O); Pulse Ox 100% on R/A; Weight 62.6 kg cm10 (M); Pain 6/10; 20:33 BP 138 / 75; Pulse 84; Resp 17; Temp 98.2; Pulse Ox 100% ; Pain 5/10; bm8 22:56 BP 143 / 98; Pulse 80; Resp 17; Temp 98.2; Pulse Ox 100% ; Pain 2/10; bm8 18:51 Pain Scale: Adult cm10 20:33 Pain Scale: Adult bm8 22:56 Pain Scale: Adult bm8 Taniya Coma Score: 19:14 Eye Response: spontaneous(4). Motor Response: obeys commands(6). Verbal Response: bm8 oriented(5). Total: 15. 20:33 Eye Response: spontaneous(4). Motor Response: obeys commands(6). Verbal Response: bm8 oriented(5). Total: 15. 22:56 Eye Response: spontaneous(4). Motor Response: obeys commands(6). Verbal Response: bm8 oriented(5). Total: 15. ED Course: 18:44 Patient arrived in ED. ll1 18:44 Arm band placed on Patient placed in an exam room, on a stretcher. ll1 18:53 Triage completed. cm10 18:53 Patient has correct armband on for positive identification. Bed in low position. Call cm10 light in reach. Side rails up X2. Provided Education on: ER process and procedures.. Pulse ox on. NIBP on. 18:53 Maintain EMS IV. Dressing intact. Good blood return noted. Site clean \T\ dry. Gauge \T\ cm 10 site: 20g left forearm. Flushed with 10 mL NS. 18:54 Malgorzata Dueñas FNP-C [facility]. kb 18:54 Jose Ordoñez MD is Attending Physician. kb 19:14 Joey Wesley, RN is Primary Nurse. bm8 19:14 No provider procedures requiring assistance completed. Patient maintains SpO2 bm8 saturation greater than 95% on room air. 20:25 CT Head C Spine In Process Unspecified. EDMS 20:33 Foot Right 3 View XRAY In Process Unspecified. EDMS 22:56 IV discontinued, intact, bleeding controlled, No redness/swelling at site. Pressure bm8 dressing applied. Administered Medications: 19:34 Drug: Boostrix Tdap IM 0.5 ml IM once; as a single dose Route: IM; Site: left deltoid; bm8 21:21 Follow up: Response: No adverse reaction bm8 21:16 Drug: HYDROcodone-acetaminophen PO 5 mg-325 mg 1 tabs PO once Route: PO; bm8 21:21 Follow up: Response: No adverse reaction bm8 21:21 Not Given (Physician Discretion): lidocaine(1 %) 1 vials 5 ml Infiltration once; to bm8 bedside Medication: 19:14 VIS not applicable for this client. bm8 21:28 Vaccine Information Statement (VIS) provided today. Questions and/or concerns bm8 addressed. VIS edition date: March 27, 2021. Outcome: 22:31 Discharge ordered by . kb 22:56 Discharged to home via wheelchair, with family, bm8 22:56 Condition: stable 22:56 Discharge instructions given to patient, family, Instructed on discharge instructions, follow up and referral plans. no drinking with medication, no driving heavy equipment, medication usage, safety practices, Demonstrated understanding of instructions, follow-up care, medications, Prescriptions given X 2, 22:59 Patient left the ED. bm8 Signatures: Dispatcher [employer] EDMS Malgorzata Dueñas FNP-C FNP-Bert Sarabia RN RN ll1 Susan Watson, RN RN cm10 Joey Wesley, RN RN bm8 Corrections: (The following items were deleted from the chart) 21:28 21:20 BP 128 / 97; Pulse 58bpm; Resp 18bpm; Pulse Ox 99%; Temp 98.2F; Pain 6/10, Adult; bm8 bm8 21:28 21:20 GCS: 15, bm8 bm8 : 21:20 IV discontinued, intact, bleeding controlled, No redness/swelling at site. bm8 Pressure dressing applied, bm8 21:20 Crutch training done. Orthoglass splint: Posterior short lleg splint applied on bm8 right leg. bm8 21:20 Discharged to home via wheelchair, bm8 bm8 21:20 Condition: stable bm8 bm8 21:20 Discharge instructions given to patient, family, Instructed on discharge bm8 instructions, follow up and referral plans. no drinking with medication, no driving heavy equipment, medication usage, safe sex practices, safety practices, crutch walking, Demonstrated understanding of instructions, follow-up care, medications, Prescriptions given X 2, bm8
[2024-10-31 23:05] VITALS: TEMP 98.2; O2SAT 100
[2024-10-31 23:08] VITALS: BP 143/98
== END 2024-10-31 22:59 | disposition home or self-care (01) ==
LOC: ER 18:41
DX: S00.83XA Contusion of other part of head, initial encounter (principal); S92.351A Displaced fracture of fifth metatarsal bone, right foot, initial encounter for closed fracture; S61.412A Laceration without foreign body of left hand, initial encounter; W18.30XA Fall on same level, unspecified, initial encounter
CPT/HCPCS: 70450; 72125; 73630; 12041; J2003; 96372; 99284